=== PATIENT | female | born 1985 | race African-American/Black ===

== ENCOUNTER 2023-01-09 07:44 | Emergency (ER) | payer OTHER ==
[2023-01-09 08:27] LABS: Bilirubin Neg (Negative); Blood, Urine Negative (Negative); Clarity Slightly Cloudy (Clear); Glucose, Urine (Dipstick) >=1000 mg/dL (Negative); Ketone, Urine 50 mg/dL (Negative); Leukocyte 25 (Negative); Nitrite Negative (Negative); Protein, Urine (Dipstick) Negative (Neg-Trace); Urobilinogen Normal mg/dL (Less than 2)
[2023-01-09 08:45] LABS: Pregnancy Test - Urine (BHCG) Negative (Negative); Pregu Control Background? CLEAR/WHITE (CLR/WHITE); Pregu Control Bar Appear? YES (CONTROL BAR)
[2023-01-09 08:49] LABS: Bacteria/HPF 3+ HPF (None Seen); RBC/HPF 0-3 HPF (0-3); WBC/HPF 0-3 HPF (0-3); Yeast-Budding Rare HPF (None Seen)
[2023-01-09 08:50] LABS: Yeast-Hyphae Rare HPF (None Seen)
== END 2023-01-09 09:39 | disposition home or self-care (01) ==
LOC: CSHERS 07:44
DX: N30.00 Acute cystitis without hematuria (principal); N76.0 Acute vaginitis
CPT/HCPCS: 81003; 81015; 81025; 87086; 99283

== ENCOUNTER 2023-05-05 13:14 | Emergency (ER) | payer OTHER | END 2023-05-05 15:15 | disposition home or self-care (01) | LOC: CSHERS 13:14 | DX: K02.9 Dental caries, unspecified (principal); E11.9 Type 2 diabetes mellitus without complications | CPT/HCPCS: 99282 ==